=== PATIENT | female | born 1995 | race Caucasian/White ===

== ENCOUNTER 2017-12-28 17:07 | Emergency (ER) | payer MEDICAID ==
[~2017-12-28] VITALS: Ht 167.6 cm; Wt 89.3 kg
[2017-12-28 17:19] VITALS: TEMP 98.6
[2017-12-28 18:14] LABS: COLLECTION METHOD CLEAN CATCH
[2017-12-28 18:27] LABS: MUCOUS Present /lpf; PH 5 (5-8); URINE APPEARANCE Hazy; URINE BACTERIA Rare /hpf; URINE BILIRUBIN Negative (NEGATIVE); URINE BLOOD Negative (NEGATIVE); URINE COLOR Yellow; URINE GLUCOSE Negative (NEGATIVE); URINE KETONE Negative (NEGATIVE); URINE LEUKOCYTE ESTERASE 2+ (NEGATIVE); URINE NITRATE Negative (NEGATIVE); URINE PROTEIN(semi-quant) Negative (NEGATIVE); URINE UROBILINOGEN Negative (NEGATIVE)
[2017-12-28] MEDS ORDERED: MEDROL 4MG DOSPA4 MG PO (19:03)
[2017-12-28] MEDS ORDERED: NORCO 325 MG-51 TAB PO (19:03)
[2017-12-28 19:15] VITALS: BP 118/90; PULSE 104
== END 2017-12-28 19:15 | disposition home or self-care (01) ==
LOC: COL.ER 17:07
PROVIDERS: Nurse Practitioner
DX: M54.5 Low back pain (principal); F17.210 Nicotine dependence, cigarettes, uncomplicated

== ENCOUNTER 2018-03-27 15:05 | Emergency (ER) | payer MEDICAID ==
[~2018-03-27] VITALS: Ht 167.6 cm; Wt 64.5 kg
[~2018-03-27 15:05] MED LIST: MEDROL 4MG DOSPA4 MG PO; NORCO 325 MG-51 TAB PO
[2018-03-27 15:14] VITALS: TEMP 98.6
[2018-03-27 17:16] LABS: COLLECTION METHOD CLEAN CATCH
[2018-03-27 17:29] LABS: AMORPHOUS CRYSTAL Present /uL; MUCOUS Present /lpf; PH 7 (5-8); URINE APPEARANCE Hazy; URINE BACTERIA Rare /hpf; URINE BILIRUBIN Negative (NEGATIVE); URINE BLOOD Negative (NEGATIVE); URINE COLOR Yellow; URINE GLUCOSE Negative (NEGATIVE); URINE KETONE Negative (NEGATIVE); URINE LEUKOCYTE ESTERASE 3+ (NEGATIVE); URINE NITRATE Negative (NEGATIVE); URINE PROTEIN(semi-quant) Negative (NEGATIVE); URINE RBC 0-2 /hpf; URINE UROBILINOGEN Negative (NEGATIVE)
[2018-03-27] MEDS ORDERED: MACROBID 1100 MG/CAP PO (17:52)
[2018-03-27] MEDS ORDERED: ZOFRAN 4MG T4 MG/TAB PO (17:54)
[2018-03-27 18:02] VITALS: BP 130/77; PULSE 68
== END 2018-03-27 18:06 | disposition home or self-care (01) ==
LOC: COL.ER 15:05
PROVIDERS: Nurse Practitioner Primary Care
DX: G43.909 Migraine, unspecified, not intractable, without status migrainosus (principal); N30.90 Cystitis, unspecified without hematuria; I10 Essential (primary) hypertension; F17.210 Nicotine dependence, cigarettes, uncomplicated
CPT/HCPCS: J1885; J2405

== ENCOUNTER 2018-05-13 11:49 | Emergency (ER) | payer MEDICAID ==
[~2018-05-13] VITALS: Ht 170.2 cm; Wt 90.5 kg
[~2018-05-13 11:49] MED LIST changes: +MACROBID 1100 MG/CAP PO; +ZOFRAN 4MG T4 MG/TAB PO
[2018-05-13 11:56] VITALS: TEMP 98.2
[2018-05-13] MEDS ORDERED: CRUTCHES MC (12:56)
[2018-05-13 13:06] VITALS: BP 105/65; PULSE 75
== END 2018-05-13 13:07 | disposition home or self-care (01) ==
LOC: COL.ER 11:49
DX: S83.91XA Sprain of unspecified site of right knee, initial encounter (principal); F17.210 Nicotine dependence, cigarettes, uncomplicated; X50.0XXA Overexertion from strenuous movement or load, initial encounter

== ENCOUNTER 2018-08-23 22:46 | Emergency (ER) | payer MEDICAID ==
[~2018-08-23] VITALS: Ht 170.2 cm; Wt 91.4 kg
[~2018-08-23 22:46] MED LIST changes: +CRUTCHES MC
[2018-08-23 22:55] VITALS: TEMP 99
[2018-08-23] MEDS ORDERED: TYLENOL 500MG500 MG PO (23:02)
[2018-08-23] MEDS ORDERED: MOTRIN 200200 MG/TAB PO (23:03)
[2018-08-24 00:26] LABS: COLLECTION METHOD CLEAN CATCH
[2018-08-24 00:48] LABS: PH 6 (5-8); URINE APPEARANCE Clear; URINE BACTERIA None Seen /hpf; URINE BILIRUBIN Negative (NEGATIVE); URINE BLOOD Negative (NEGATIVE); URINE COLOR Yellow; URINE GLUCOSE Negative (NEGATIVE); URINE KETONE Negative (NEGATIVE); URINE LEUKOCYTE ESTERASE Trace (NEGATIVE); URINE NITRATE Negative (NEGATIVE); URINE PROTEIN(semi-quant) Negative (NEGATIVE); URINE RBC 0-2 /hpf; URINE UROBILINOGEN Negative (NEGATIVE)
[2018-08-24] MEDS ORDERED: FLEXERIL 1010 MG/TAB PO (01:00)
[2018-08-24 01:33] VITALS: BP 119/80; PULSE 77
== END 2018-08-24 01:37 | disposition home or self-care (01) ==
LOC: COL.ER 22:46
PROVIDERS: Physician Assistant
DX: G57.10 Meralgia paresthetica, unspecified lower limb (principal); M54.5 Low back pain; F17.210 Nicotine dependence, cigarettes, uncomplicated
CPT/HCPCS: J1885

== ENCOUNTER 2018-08-26 09:57 | Emergency (ER) | payer MEDICAID ==
[~2018-08-26] VITALS: Ht 170.2 cm; Wt 91.4 kg
[~2018-08-26 09:57] MED LIST changes: +FLEXERIL 1010 MG/TAB PO; +MOTRIN 200200 MG/TAB PO; +TYLENOL 500MG500 MG PO
[2018-08-26 10:00] VITALS: BP 120/77; TEMP 97.6
[2018-08-26 10:51] LABS: COLLECTION METHOD CLEAN CATCH
[2018-08-26 10:56] LABS: PH 5 (5-8); SQUAMOUS EPITHELIAL 0-2 /hpf; URINE APPEARANCE Clear; URINE BACTERIA None Seen /hpf; URINE BILIRUBIN Negative (NEGATIVE); URINE BLOOD 3+ (NEGATIVE); URINE COLOR Yellow; URINE GLUCOSE Negative (NEGATIVE); URINE KETONE Negative (NEGATIVE); URINE LEUKOCYTE ESTERASE Trace (NEGATIVE); URINE NITRATE Negative (NEGATIVE); URINE PROTEIN(semi-quant) Negative (NEGATIVE); URINE RBC >50 /hpf; URINE UROBILINOGEN Negative (NEGATIVE)
[2018-08-26] MEDS ORDERED: CEPHALEXIN500 M1 PO (11:44)
[2018-08-26] MEDS ORDERED: FLAGYL500 MG PO (11:44)
[2018-08-26] MEDS ORDERED: NORCO 325 MG-51 TAB PO (11:45)
[2018-08-26 11:53] VITALS: PULSE 90
== END 2018-08-26 11:55 | disposition home or self-care (01) ==
LOC: COL.ER 09:57
PROVIDERS: Physician Assistant
DX: S39.012A Strain of muscle, fascia and tendon of lower back, initial encounter (principal); L05.91 Pilonidal cyst without abscess; F17.210 Nicotine dependence, cigarettes, uncomplicated; X58.XXXA Exposure to other specified factors, initial encounter
CPT/HCPCS: J1885; J3360